=== PATIENT | male | born 1995 | race Two or more races ===

== ENCOUNTER 2020-01-25 09:23 | Emergency (ER) | payer OTHER ==
[2020-01-25 09:36] VITALS: BP 133/89
[2020-01-25] MEDS ORDERED: DEXAMETHASONE SOD PHOSPHATE INJ 4 MG/1 ML VIAL IM STA (10:18)
[2020-01-25] MEDS ORDERED: DIPHENHYDRAMINE HCL 50 MG CAPSULE PO ONE (10:18)
[2020-01-25] MEDS ORDERED: FAMOTIDINE 20 MG TABLET PO ONE (10:19)
--- NOTE | 2020-01-25 10:26 | ER Document Report ---
ED Skin Rash/Insect Bite/Abscs - General Chief Complaint: Rash Stated Complaint: RASH Time Seen by Provider: 01/25/20 10:15 Primary Care Provider: [facility] [Provider Group] - Follow up as needed Mode of Arrival: Ambulatory Information source: Patient Notes: Patient is a 24-year-old male comes emergency room with 2-day onset of a systemic rash. Patient states it is very pruritic. 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 Knows no contacts made with any substances that would cause this he has no history of allergies in the past. He has no histories of allergic reactions in the past. Denies any other medical problems. Does not smoke. TRAVEL OUTSIDE OF THE [place] IN LAST 30 DAYS: No - HPI Patient complains to provider of: Skin rash/lesion, Tender/swollen area, Insect bite, Insect sting Onset: Other - 3 days Onset/Duration: Gradual, Worse Quality of pain: Achy, Pressure, Throbbing Severity: Moderate Pain Level: 3 Skin Character: Abscess, Drainage, Erythema, Swelling Skin Temperature: Warm Quality of rash: Itchy, Painful Identify cause: No Exacerbated by: Denies Relieved by: Denies Similar symptoms previously: No Recently seen / treated by doctor: No - Related Data Allergies/Adverse Reactions: No Known Allergies Allergy (Verified 01/25/20 10:14) Past Medical History - General Information source: Patient - Social History Smoking Status: Never Smoker Chew tobacco use (# tins/day): No Frequency of alcohol use: None Drug Abuse: None Lives with: Family Family History: Reviewed & Not Pertinent Patient has homicidal ideation: No Review of Systems - Review of Systems Constitutional: No symptoms reported EENT: No symptoms reported Cardiovascular: No symptoms reported Respiratory: No symptoms reported Gastrointestinal: No symptoms reported Genitourinary: No symptoms reported Male Genitourinary: No symptoms reported Musculoskeletal: No symptoms reported Skin: See HPI, Rash Hematologic/Lymphatic: No symptoms reported Neurological/Psychological: No symptoms reported -: Yes All other systems reviewed and negative Physical Exam - Vital signs Vitals: Temp Pulse Resp BP Pulse Ox 97.4 F 69 14 133/89 H 100 01/25/20 09:34 01/25/20 09:34 01/25/20 09:34 01/25/20 09:34 01/25/20 09:34 Interpretation: Hypertensive - Notes Notes: PHYSICAL EXAMINATION: GENERAL: Well-appearing, well-nourished and in no acute distress. HEAD: Atraumatic, normocephalic. EYES: Pupils equal round and reactive to light, extraocular movements intact, sclera anicteric, conjunctiva are normal. ENT: Nares patent, oropharynx clear without exudates. Moist mucous membranes. NECK: Normal range of motion, supple without lymphadenopathy LUNGS: Breath sounds clear to auscultation bilaterally and equal. No wheezes rales or rhonchi. HEART: Regular rate and rhythm without murmurs NEUROLOGICAL: Normal speech, normal gait. Normal sensory, motor exams PSYCH: Normal mood, normal affect. SKIN: Examination patient's area of concern is his skin. Patient's upper extremities bilateral shows moderate amount of macular with small papules scattered across the upper arms. This extends into the back and chest and abdominal area. The face is spared the legs up apparently are spared as well at this point. Patient knows of no contact that is made but does go outside and work as a filament welder the presentation is that of an allergic contact dermatitis. There is slight months of urticaria also noted on his back and chest. Course - Re-evaluation Re-evalutation: 01/25/20 21:40 Patient did start to get some relief with the steroid injection and the Benadryl oral. Is been informed return to ER should have any difficulty swallowing or breathing. Currently patient is awake alert and oriented with no distress. Airway is currently patent. - Vital Signs Vital signs: Temp Pulse Resp BP Pulse Ox 97.4 F 69 14 133/89 H 100 01/25/20 10:15 01/25/20 09:34 01/25/20 09:34 01/25/20 09:34 01/25/20 09:34 Discharge - Discharge Clinical Impression: Allergic reaction Qualifiers: Encounter type: initial encounter Qualified Code(s): T78.40XA - Allergy, unspecified, initial encounter Disposition: HOME, SELF-CARE Instructions: Acute Allergic Reaction ([facility]), Contact Dermatitis ([facility]) Additional Instructions: Home today and rest. Stay in a cool place as much as possible for the next 24 to 48 hours. You can take Benadryl [id number] medication 25 to 50 mg every 6 hours for the itch. I am also writing you a prescription for Pepcid you can also get this [id number] if you like 20 mg twice a day for the next 2 weeks. I am placing you on a steroid taper. Monitor this closely if he gets any worse return to ER for reevaluation. Prescriptions: Famotidine [Acid Controller] 20 mg PO BID #40 tablet Prednisone [Deltasone 20 mg Tablet] 3 tab PO DAILY 5 Days tablet Prednisone 10 mg PO ASDIR #21 tablet Forms: Elevated Blood Pressure, Return to Work Referrals: [facility] [Provider Group] - Follow up as needed
== END 2020-01-25 10:49 | disposition home or self-care (01) ==
LOC: ER 09:23
DX: T78.40XA Allergy, unspecified, initial encounter (principal); R21 Rash and other nonspecific skin eruption
CPT/HCPCS: 99284; 96372; J1100